=== PATIENT | female | born 1980 | race Caucasian/White ===

== ENCOUNTER 2017-01-16 06:13 | Inpatient (IN) | payer OTHER ==
[~2017-01-16] VITALS: Ht 167.6 cm; Wt 88.6 kg
[~2017-01-16 06:13] MED LIST: ACET-749 PO; CLC100 PO; IBUP-1050 PO; PRENTAB26 PO
[2017-01-16 06:44] VITALS: Ht 167.6 cm; Wt 88.6 kg
[2017-01-16] MEDS ORDERED: PRENTAB26 PO ×2 (06:47→06:48)
[2017-01-16] MEDS ORDERED: PRLSR20 PO (07:02)
[2017-01-16] MEDS ORDERED: CYCL0.052 OP (07:03)
[2017-01-16] MEDS ORDERED: LACTATED RINGER'S 1000ML 1,000 ML IV SCH ×2 (07:05→07:56)
[2017-01-16] MEDS ORDERED: LACTATED RINGER'S 1000ML 1,000 ML IV PRN ×2 (07:05→07:56)
[2017-01-16] MEDS ORDERED: EpHEDrine SULFATE INJ 50 MG/ML AMP ONE (07:24)
[2017-01-16] MEDS ORDERED: FENTANYL CITRATE INJ 50 MCG/1 ML 2 ML VIAL ONE (07:24)
[2017-01-16] MEDS ORDERED: FENTANYL 2MCG/ML ROPIV 1.25MG/ML 100ML BAG EPI ONE (07:24)
[2017-01-16] MEDS ORDERED: BUPIVACAINE 0.25% 30 ML VIAL ONE (07:24)
[2017-01-16 07:39] LABS: HEMATOCRIT 36.8 % (37-47); MEAN CELL VOLUME 92.7 fL (80-100); MEAN CORPUSCULAR HGB CONC 32.3 g/dl (32-36); MEAN PLATELET VOLUME 9.6 fL (7.4-10.4); PLATELET COUNT 276 K/uL (130-400); RED BLOOD COUNT 3.97 M/uL (4.2-5.4); WHITE BLOOD COUNT 12.83 K/uL (4.8-10.8)
[2017-01-16] MEDS ORDERED: LACTATED RINGER'S 1000ML 500 ML IV PRN (08:31)
[2017-01-16] MEDS ORDERED: NALOXONE HCL INJ 1 MG in SODIUM CHLORIDE 0.9% 1000ML 1,000 ML IV PRN (08:31)
[2017-01-16] MEDS ORDERED: NALOXONE HCL INJ 0.4 MG/1 ML VIAL/CARP IV PRN (08:45)
[2017-01-16] MEDS ORDERED: EpHEDrine SULFATE INJ 50 MG/ML AMP IV PRN (08:45)
[2017-01-16] MEDS ORDERED: DiphenhydrAMINE HCL 50 MG/ML VIAL IV PRN (08:45)
[2017-01-16] MEDS ORDERED: FENTANYL 2MCG/ML ROPIV 1.25MG/ML 100ML BAG EPI PRN (08:45)
[2017-01-16] MEDS ORDERED: NALBUPHINE HCL INJ 10 MG/ML AMP IV PRN (08:45)
--- NOTE | 2017-01-16 09:30 | HISTORY & PHYSICAL EXAMINATION ---
DATE OF ADMISSION: 01/16/2017 HISTORY OF PRESENT ILLNESS: The patient is a 36-year-old G3, P1 at 39 weeks and 2 days who presented to labor and delivery in labor. On arrival to labor and delivery, she had no shortness of breath, no chills, no fever. The patient was very uncomfortable. She was examined and found to be 4-5 cm, 80% effaced, and -2 station. Decision was therefore made to admit patient and anticipate vaginal delivery. COURSE: Has been unremarkable. LABS: Blood type B positive, antibody negative, rubella immune, GBS negative. PAST MEDICAL HISTORY: 1. The patient has history of scoliosis. 2. History of pulsatile tinnitus. PAST SURGICAL HISTORY: The patient has had dental surgery in the past. FIELD NURSE CASE MANAGER HISTORY: The patient has had 2 vaginal deliveries in 1999 and 2009. weighed 7.5 pounds respectively. ALLERGIES: The patient has no known drug allergies. SOCIAL HISTORY: The patient denies tobacco, drug or alcohol use. FAMILY HISTORY: Noncontributory. PHYSICAL EXAMINATION: GENERAL: Well-developed, well-nourished white female in no acute distress. HEART: S1, S2, regular rhythm and rate. LUNGS: Clear to auscultation bilaterally. ABDOMEN: Gravid. Bedside ultrasound shows cephalic presentation. EXTREMITIES: No cyanosis, clubbing or edema. PELVIC EXAMINATION: The patient is 4-5 cm, 80% and -2. ASSESSMENT AND PLAN: A 36-year-old G3, P2 at 39+ weeks. The patient admitted for labor. Plan is anticipated vaginal delivery.
[2017-01-16] MEDS ORDERED: OXYTOCIN 30 UNITS/500ML NSS IV ONE (10:25)
[2017-01-16] MEDS ORDERED: MISOPROSTOL 100 MCG TAB ONE (10:35)
[2017-01-16] MEDS ORDERED: SUPERCREAM 0.870 % 15GM JAR EXT PRN (11:00)
[2017-01-16] MEDS ORDERED: ACETAMINOPHEN/CODEINE 300/30MG TAB PO PRN ×2 (11:00)
[2017-01-16] MEDS ORDERED: HYDROCORTISONE ACETATE 25 MG SUPP PR PRN (11:00)
[2017-01-16] MEDS ORDERED: IBUPROFEN 600 MG TAB PO PRN (11:00)
[2017-01-16] MEDS ORDERED: MISOPROSTOL 200 MCG TAB PR SCH (11:00)
[2017-01-16] MEDS ORDERED: ACETAMINOPHEN 325 MG TAB PO PRN (11:00)
[2017-01-16] MEDS ORDERED: OXYCODONE/ACETAMINOPHEN 5-325 TAB PO PRN (11:00)
[2017-01-16] MEDS ORDERED: LANOLIN OINT EXT PRN ×2 (11:00)
[2017-01-16] MEDS ORDERED: OXYTOCIN 30 UNITS/500ML NSS IV PRN (11:00)
[2017-01-16] MEDS ORDERED: BENZOCAINE 20% AER SPR 82.5 GM CAN EXT PRN (11:00)
--- NOTE | 2017-01-16 12:18 | Anesthesia Procedure Note ---
Anesthesia Epidural Removal Nt Date & Time Jan 16, 2017 at 12:17 Vital Signs Pain Intensity: 10.0 Notes Mental Status: alert / awake / arousable, participated in evaluation Nausea / Vomiting: adequately controlled Pain: adequately controlled Airway Patency, RR, SpO2: stable & adequate BP & HR: stable & adequate Hydration State: stable & adequate Neuraxial Anesthesia: was administered, sensory block is resolving Anesthetic Complications: no major complications apparent, pt satisfied with anesthetic care Epidural: removed without complications, with tip intact
--- NOTE | 2017-01-16 12:32 | DELIVERY SUMMARY ---
DATE OF OPERATION: 01/16/2017 DELIVERY NOTE DATE OF DELIVERY: 01/16/2017. The patient delivered a live infant female in left occiput anterior presentation. There was no nuchal cord. Infant was delivered, placed on mother's abdomen and cord clamped after 1 minute. The cord blood was obtained. Placenta was spontaneously delivered. Inspection of the placenta shows normally gross placenta, 3-vessel cord. 's weight is pending. Apgars 8 and 9. Inspection of the perineum showed no lacerations or tears. Estimated blood loss 500 mL. All instruments were removed from the vagina and accounted for x2 including sponges and retractors. Rectal exam post repair showed good sphincter tone. The patient and baby are doing well in recovery. I attest to the content of the Intraoperative Record and any orders documented therein. Any exception s are noted below.
[2017-01-16 13:15] VITALS: BP 116/55; PULSE 90; TEMP 37.6
[2017-01-16 15:00] VITALS: BP 127/76; PULSE 80; TEMP 37.1; O2SAT 97
[2017-01-16 20:20] VITALS: BP 116/73; PULSE 90; TEMP 36.9
[2017-01-16] MEDS: DOCUSATE SODIUM 100 MG CAP PO SCH (20:29)
[2017-01-17] VITALS: BP 109/67; PULSE 82; TEMP 37
[2017-01-17 04:45] VITALS: BP 109/68; PULSE 80; TEMP 36.7
[2017-01-17 07:30] VITALS: BP 110/76; PULSE 81; TEMP 36.6
--- NOTE | 2017-01-17 07:35 | OB/GYN Progress Note ---
PRACTICAL NURSE Progress Note Date of Service Jan 17, 2017. Subjective conversation w/ patient, physical exam Ambulation: ambulating normally Voiding: no voiding problems Passing Gas: Yes Diet Tolerance: Regular Diet Lochia: Moderate Feeding Type: Breast Feeding Review of Systems Constitutional: No fever, No chills, No sweats, No weight loss, No weakness, No fatigue, No problem reported Respiratory: No cough, No sputum, No wheezing, No shortness of breath, No dyspnea on exertion, No dyspnea at rest, No hemoptysis, No problem reported Cardiac: No chest pain, No orthopnea, No PND, No edema, No claudication, No palpitations, No problem reported Breast: No see HPI, No breast lump, No change in shape, No nipple discharge, No breast pain, No problem reported Abdomen: No pain, No nausea, No vomiting, No diarrhea, No constipation, No GI bleeding, No problem reported Female : No see HPI, No dysuria, No urinary frequency, No hematuria, No incontinence, No abnormal vaginal bleeding, No vaginal discharge, No problem reported Objective Vital Signs Date Time Temp Pulse Resp B/P (MAP) Pulse Ox O2 Delivery O2 Flow Rate FiO2 01/17/17 04:45 36.7 80 18 109/68 (82) Room Air 01/17/17 00:00 Room Air 01/17/17 00:00 37.0 82 18 109/67 (81) Room Air 01/16/17 20:20 36.9 90 18 116/73 (87) Room Air 01/16/17 15:00 97 Room Air 01/16/17 15:00 37.1 80 20 127/76 (93) 97 Room Air 01/16/17 13:15 37.6 90 20 116/55 (75) Room Air 01/16/17 13:15 Room Air Physical Exam General Appearance: WELL-APPEARING, WD/WN, NO APPARENT DISTRESS, uncomfortable Respiratory/Chest: chest non-tender, lungs clear, normal breath sounds, no respiratory distress, no accessory muscle use Cardiovascular: regular rate, rhythm Abdomen: normal bowel sounds, non tender, soft, no organomegaly, no pulsatile mass Fundus: Firm Extremities: normal range of motion, non-tender, normal inspection, no pedal edema, no calf tenderness Assessment and Plan Day Number: 1 Continue Routine Care: VD Day #1 pt doing well anticipate disch tomorrow
--- NOTE | 2017-01-17 07:47 | Progress Note ---
Progress Note Date of Service Jan 17, 2017. Progress Note pt tells me her older son has an appt this pm and so she wants to go home later today will disch PM , pending baby's feeding Nurse is in the room and we have all agreed to PM disch
[2017-01-17] MEDS ORDERED: MTR600X PO (07:48)
[2017-01-17] MEDS ORDERED: CLC100 PO (07:48)
--- NOTE | 2017-01-17 07:49 | Discharge Instructions ---
Discharge Instructions Date of Service Jan 17, 2017. Admission Reason for Admission: LABOR Discharge Discharge Diagnosis / Problem: postop Discharge Goals Goal(s): Routine recovery after delivery Activity Recommendations Activity Limitations: as noted below ACTIVITY RECOMMENDATIONS: * Gradual return to full activity over the next 2-3 weeks. * No lifting - nothing heavier than baby over the next 2-3 weeks. * Do not engage in vigorous exercise, sexual activity or sports until cleared by your physician. * Do not drive or operate any motorized equipment until cleared by your physician. * You may shower/bathe daily. BREAST CARE: If you are not breast feeding: * Wear a supportive bra 24 hours a day for one to two weeks. * Avoid stimulating your breasts and nipples as much as possible during the first few weeks after delivery. * When taking a shower, have the warm water hit your back, not breasts. * When your breasts feel full, apply ice packs. Usually three to four times a day helps ease the discomfort. * Take a mild pain medication (Tylenol/Motrin) when you are uncomfortable. If breast feeding: * Use breast milk to lubricate nipples. Lansinoh cream may be used for sore nipples. You do not need to remove cream prior to breast feeding. If using a different brand of cream, check the label for directions regarding removal of cream prior to nursing. * Wear a supportive bra. * If having problems with breasts or breast feeding, call a desktop support consultant or your health care provider. EPISIOTOMY CARE: After delivery, if you have an episiotomy (stitches), the following steps will ease discomfort and aid healing. * For the first 24 hours after delivery, place ice packs next to your episiotomy to help reduce swelling. * After the first 24 hour-period, sitz baths, either portable or in the tub, are suggested. A shower with a shower arm sprayed over the episiotomy may be comforting. * Marisol care should be done after each voiding and bowel movement. Squirt warm water from a plastic bottle over the perineum (region of the body between the anus and urinary opening) and pat dry. * Use Dermoplast to ease discomfort. Shake container. [place] directly over the episiotomy. * Place a Tucks on a clean sanitary pad next to your episiotomy. OVER THE COUNTER MEDICATION: * For discomfort or pain, you may use Acetaminophen (Tylenol), Ibuprofen (Advil ), or Naproxen (Aleve) following the package directions. * For constipation you may use Colace following the package directions. SPECIAL CARE INSTRUCTIONS: When you are discharged from the hospital, it is important for you to follow the instructions listed below: * During the first week at home, you should be able to care for yourself and your baby. In addition, the usual light household activities are encouraged. * Limit your activities to the way you feel. Do not try to clean the house or move furniture. Be sensible. * If you actively engage in sports and have done so up until the time of your delivery, you may resume these activities as soon as you feel able. This may take up to one month or even longer. Use good judgment. * Continue to take your vitamins for at least six weeks after the of your baby. * Your diet need not be limited unless you were on a special diet before your delivery. Breast-feeding mothers need around 2500 calories per day and at least 64-80 ounces of fluid per day (8 to 10 glasses). * You should eat foods from the four major food groups. Crash diets or fad diets are to be avoided. Eating lean meats, fresh fruits and vegetables, low-fat dairy products, high fiber foods and a regular exercise program, will help you get back to your pre- weight without putting your health at risk. * Constipation is sometimes a problem after delivery. Take a mild laxative as needed. If breast feeding, Milk of Magnesia is acceptable to use. You may use a suppository or Fleets enema if no episiotomy. * A daily shower or tub bath is suggested. Be sure to thoroughly and gently dry the perineum. * A bloody vaginal discharge will usually continue until around four weeks post . A small amount of bleeding may continue for as long as six weeks. Vaginal discharge changes from the bright red bleeding after delivery to pink then brownish and finally yellowish-pink before becoming white and disappearing. * Bleeding may increase with activity. Your first period may come in 4-8 weeks. If you are breast feeding, your period may be delayed even longer. * [place] (sex) can begin whenever both you and your partner feel comfortable and do not have any form of genital infection. It is recommended that you wait until after your return appointment and discuss with your physician. If you have questions, please talk to your health care practitioner. A condom should be used to prevent infection and . * Foreplay, gentle intercourse and lubrication is very important the first several times to prevent pain. A water-based lubricant such as K-Y jelly or Astroglide may be used. * Tampons may be used six weeks after delivery. * Douching should be avoided for 6 weeks after delivery. * If you have RH negative blood and your baby is RH positive, you will receive RHOGAM by injection prior to discharge. The nurse will give you a card to keep with you that has the date and place that you received RHOGAM after delivery. * During your care, you had a Rubella screen done to check for the presence of rubella antibodies in your blood. If your test was negative, you will receive a Rubella vaccine prior to discharge. This vaccine may cause a fever, soreness at the injection site and flu-like symptoms. If these symptoms persist, notify your health care practitioner. is not advised for three months after a Rubella vaccine. There is a higher chance of having a baby with defects if conceived within three months of getting the vaccine. * If you were discharged 24 hours from delivery or before 48 hours: Visiting nurses will come to your home 48 hours after discharge to assess you and your baby. The visiting nurse will meet with you while you are in the hospital to arrange a time and get directions to your home. * Verbalizes understanding of car seat law as reviewed with patient nursing. * Car Seat hand-out given and reviewed with patient by nursing. * Shaken baby information reviewed with patient by nursing. Call you doctor if: * Heavy bleeding (saturating several pads an hour) or passing clots the size of your fist. * A fever >101 degrees F (38.3 degrees C) on two occasions four hours apart and/or chills. * Unusual pain in the pelvic or vaginal areas. * "Baby Blues" lasting longer than two weeks. If you have any questions or concerns, call your health care practitioner at . FOLLOW-UP VISIT: * Please call the office at to schedule a 6 week examination. It is important you keep this appointment. * It is important for you to make arrangements for either yearly or twice yearly check-ups thereafter. . Current Hospital Diet Patient's current hospital diet: Regular OB Diet Discharge Diet Recommended Diet: Regular Diet Pending Studies Studies pending at discharge: no Medical Emergencies . Who to Call and When: Medical Emergencies: If at any time you feel your situation is an emergency, please call 911 immediately. . Non-Emergent Contact Non-Emergency issues call your: Specialist . . "Provider Documentation" section prepared by Charles Rahman. . VTE Core Measure Inpt VTE Proph given/why not?: Treatment not indicated
[2017-01-17] MEDS ORDERED: MISC-696 EX (07:57)
[2017-01-17] MEDS ORDERED: PRENATAL VITAMIN TAB PO SCH (08:00)
[2017-01-17] MEDS: DOCUSATE SODIUM 100 MG CAP PO SCH (09:39)
[2017-01-17] MEDS ORDERED: MEASLES, MUMPS & RUBELLA VIRUS VIAL SQ. ONE (11:15)
[2017-01-17 13:50] VITALS: BP_DIAS 76; PULSE 81; TEMP 36.6
[2017-01-17] MEDS ORDERED: BISACODYL 5 MG TABEC PO SCH (20:00)
[2017-01-18] MEDS ORDERED: BISACODYL 10 MG SUPP PR PRN (07:00)
== END 2017-01-17 13:50 | disposition home or self-care (01) | DRG 775 ==
LOC: C.OPB 06:13 → C.LD 06:13 → C.OPB 07:07 → C.OBG 13:28 → EDSTATUS 01-21 06:12
PROVIDERS: ADMIT Obstetrics & Gynecology; ATTEND Obstetrics & Gynecology
PROC: 10E0XZZ Delivery of Products of Conception, External Approach (ICD-10-PCS; principal; 2017-01-16)
DX: O80 Encounter for full-term uncomplicated delivery (principal); Z3A.39 39 weeks gestation of pregnancy; Z37.0 Single live birth